=== PATIENT | female | born 1970 | race Caucasian/White ===

== ENCOUNTER 2024-12-23 22:25 | Emergency (ER) | payer MEDICAID, SELFPAY ==
[2024-12-23 22:32] VITALS: BP 134/70; BP 140/78; PULSE 60; PULSE 64; RESP 16; TEMP 36.8; O2SAT 98; O2SAT 99; BMI 26.0
--- NOTE | 2024-12-23 22:44 | ECG_ITS ---
Test Reason : ABD PAIN Blood Pressure : */* mmHG Vent. Rate : 63 BPM Atrial Rate : 63 BPM P-R Int : 170 ms QRS Dur : 82 ms QT Int : 434 ms P-R-T Axes : 60 49 45 degrees QTcB Int : 444 ms Normal sinus rhythm Normal ECG When compared with ECG of 29-Dec-2017 23:53, No significant change was found Referred By: Generic ED Physician Electronically Signed By: Navdeep Gandhi
[2024-12-23 23:06] LABS: MANUAL DIFF FLAG NO
[2024-12-23 23:09] LABS: Basophils Percent Auto 0.4 % (0-2); Eosinophils Absolute Auto 0.1 X10*3/uL (0.0-0.4); Eosinophils Percent Auto 0.9 % (0-4); Hematocrit 37.1 % (37.0-47.0); Hemoglobin 12.3 g/dl (12.0-16.0); Imm Gran Abs Auto 0.01 X10*3/uL (0.00-0.03); Imm Gran Pct Auto 0.1 % (0.0-0.4); Lymphocytes Absolute Auto 2.7 X10*3/uL (1.2-4.9); Lymphocytes Percent Auto 38.2 % (20-40); Mean Corpuscular HGB Conc 33.2 g/dl (31.0-35.0); Mean Corpuscular Hemoglobin 30.8 pg (27.0-33.0); Mean Platelet Volume 10.7 fL (9.4-12.3); Monocytes Absolute Auto 0.4 X10*3/uL (0.1-1.2); Neutrophils Absolute Auto 3.8 x10*3/uL (2.0-8.3); Neutrophils Percent Auto 54.4 % (45-73); Platelet Count 256 X10*3/uL (160-400); Red Blood Count 3.99 X10*6/uL (4.20-5.50); Red Cell Distribution Width 14.2 % (11.0-16.0)
[2024-12-23 23:27] LABS: Alanine Aminotransferase 72 U/L (0-31); Albumin Level 4.1 g/dL (3.5-5.0); Alkaline Phosphatase 63 U/L (39-117); Anion Gap 12 (12-20); Aspartate Amino Transferase 73 U/L (5-31); Bilirubin Direct 0.2 mg/dL (0.0-0.5); Bilirubin Total 0.5 mg/dL (0.0-1.0); Blood Urea Nitrogen 9 mg/dL (9-16); Calcium 9.2 mg/dL (8.4-10.2); Carbon Dioxide 27 mmol/L (22-29); Chloride 105 mmol/L (96-108); Creatinine Clr Calc Pharmacy 67.9; Estimated Glomerular Filt Rate > 60; Glucose Random 75 mg/dL (60-115); Lipase 9 U/L (8-78); Potassium 4.3 mmol/L (3.3-5.1); Sodium 140 mmol/L (135-145); Total Protein 7.7 g/dL (6.5-8.0)
[2024-12-23 23:36] LABS: Troponin-I High Sensitivity < 2.7 ng/L (<3.5-17.0)
--- NOTE | 2024-12-24 00:07 | ED.GENADULT ---
HPI - General Adult General Chief complaint: Abdominal Pain Stated complaint: headache, abd pain hx cancer breast cancer Time Seen by Provider: 12/23/24 23:36 Source: patient Mode of arrival: ambulatory Limitations: no limitations History of Present Illness ED Provider: HPI narrative: Patient's history of anxiety depression comes here for chronic headache and nausea says that she has breast cancer and maybe brain cancer but never been diagnose never been seen by PCP but patient feels that she has a cancer patient's takes Klonopin and has not taken the medicine today Related Data Allergies Allergy/AdvReac Type Severity Reaction Status Date / Time No Known Allergies Allergy Verified 12/23/24 22:35 [No Known Allergies*] Review of Systems Review of Systems: Yes all other systems are reviewed and are negative [facility] Social History Social History Smoked in Last 30 Days: Yes Use of substances other than those prescribed or required for medical reasons: Yes Substance Use Type: Crack/Cocaine Substance Use Frequency: Occasionally Last Used Substance: Weeks (ago) Advance Directives: No Advance Directives Information Provided: No Do you have a plan to hurt others: No Plan Physical Exam ED Vital Signs: Vital Signs - 24 hr 12/23/24 22:32 12/24/24 01:02 Temperature 98.3 F 98.3 F Pulse Rate 60 60 Respiratory Rate 16 16 Blood Pressure 134/70 134/70 Pulse Oximetry 99 99 Oxygen Delivery Method Room Air Room Air BMI result Body Mass Index 26.0 Appearance: Alert. Oriented X3. No acute distress. Eyes: PERRLA, No Nystagmus ENT: Pharynx normal. Oral Mucosa moist Neck: Normal inspection. Neck supple. CVS: Normal heart rate and rhythm. Pulses normal. Respiratory: No respiratory distress. Equal air entry bilateral, no wheezing/rales/rhonchi Abdomen: Soft and nontender. Bowel sounds are present, no mass palpable, no CVA tenderness Skin: Skin warm and dry. Normal skin color. Normal skin turgor. Extremities: No lower extremity edema. No calf tenderness Neuro: Oriented X 3. No motor deficit. No sensory deficit.No cerebellar signs , cranial nerves II-XII intact Medical Decision Making Medical Decision Making MDM Narrative: Patient's anxiety with multiple complaints asking for CT scan says that she been to different hospital for same and nobody does any testing on her patient advised to follow with PCP Lab Data MDM Lab Attestation statement: I reviewed the patient's lab results. 12/23/24 23:02 12/23/24 23:02 Labs: Lab Results 12/23/24 Range/Units 23:02 WBC 7.0 (4.8-10.8) X10*3/uL RBC 3.99 L (4.20-5.50) X10*6/uL Hgb 12.3 (12.0-16.0) g/dl Hct 37.1 (37.0-47.0) % MCV 93.0 (80.0-98.0) fL MCH 30.8 (27.0-33.0) pg MCHC 33.2 (31.0-35.0) g/dl RDW 14.2 (11.0-16.0) % Plt Count 256 (160-400) X10*3/uL MPV 10.7 (9.4-12.3) fL Immature Gran % (Auto) 0.1 (0.0-0.4) % Neut % (Auto) 54.4 (45-73) % Lymph % (Auto) 38.2 (20-40) % Kay % (Auto) 6.0 (2-11) % Eos % (Auto) 0.9 (0-4) % Baso % (Auto) 0.4 (0-2) % Lymph # (Auto) 2.7 (1.2-4.9) X10*3/uL Kay # (Auto) 0.4 (0.1-1.2) X10*3/uL Eos # (Auto) 0.1 (0.0-0.4) X10*3/uL Baso # (Auto) 0.0 (0.0-0.2) X10*3/uL Abs Immat Gran (auto) 0.01 (0.00-0.03) X10*3/uL Absolute Neuts (auto) 3.8 (2.0-8.3) x10*3/uL Absolute Nucleated RBC 0.000 (0.0-0.012) X10*3/uL Nucleated RBC % (auto) 0.0 (0.0-0.2) /100WBC Sodium 140 (135-145) mmol/L Potassium 4.3 (3.3-5.1) mmol/L Chloride 105 (96-108) mmol/L Carbon Dioxide 27 (22-29) mmol/L Anion Gap 12 (12-20) BUN 9 (9-16) mg/dL Creatinine 0.82 (0.5-1.4) mg/dL Estim Creat Clear Calc 67.9 Estimated GFR > 60 Random Glucose 75 (60-115) mg/dL Calcium 9.2 (8.4-10.2) mg/dL Total Bilirubin 0.5 (0.0-1.0) mg/dL Direct Bilirubin 0.2 (0.0-0.5) mg/dL AST 73 H (5-31) U/L ALT 72 H (0-31) U/L Alkaline Phosphatase 63 (39-117) U/L Troponin I High Sens < 2.7 (<3.5-17.0) ng/L Total Protein 7.7 (6.5-8.0) g/dL Albumin 4.1 (3.5-5.0) g/dL Lipase 9 (8-78) U/L Discharge Plan Discharge Clinical Impression: Anxiety Patient Disposition: Home, Self-Care Instructions: Anxiety (ED) Additional Instructions: Continue take your medication follow up with your therapist and PCP Interventions: ED Discharge Assessment Last Done: 12/24/24 01:02 Discharge Date/Time: 12/24/24 01:40 Print Language: Latvian
[2024-12-24 01:02] VITALS: BP 134/70; PULSE 60; RESP 16; TEMP 36.8; O2SAT 99
--- NOTE | 2024-12-24 01:40 | PC.NURSE ---
Pt became belligerent upon discussing discharge and that facility does not provide rides home. Patient stated I live in [place], how the (expletive) am I supposed to get home? . Encouraged patient to call for a ride and she stated that she has no one. Pt's emergency contact goes to a discontinued number. Pt yelling that she is going to janny this hospital. Charge nurse notified. Pt came out of room to nurses's station and asking if we could obtain records from [facility] right now. Explained to patient that she would need to sign a release and it would need to be faxed to [facility] Medical records department and then the employees would send over records. Pt expressed that she was not happy and said she is just trying to save your jobs . Pt noted to be laughing to herself and continued to repeat that she was going to be suing the facility. Dr. Nino over to speak with patient and security over to escort patient out of the department. Pt refused to have vital signs taken or to sign discharge paperwork. Pt initially refused discharge packet and then demanded it prior to being escorted out by security.
== END 2024-12-24 01:40 | disposition home or self-care (01) ==
PROVIDERS: Emergency Provider Internal Medicine
DX: F41.9 Anxiety disorder, unspecified (principal); R10.9 Unspecified abdominal pain
CPT/HCPCS: 36415; 80048; 80076; 83690; 84484; 85025; 93005; 99283; 99284

== ENCOUNTER → 2024-12-23 22:44 | Outpatient (BNV) | payer MEDICAID, SELFPAY | PROVIDERS: Emergency Provider Internal Medicine; Visit Provider Internal Medicine Cardiovascular Disease | DX: R10.9 Unspecified abdominal pain (principal) | CPT/HCPCS: 93010 ==

== ENCOUNTER 2024-12-24 02:12 | Emergency (ER) | payer OTHER, SELFPAY ==
--- NOTE | ~2024-12-24 | CT_ITS ---
CLINICAL HISTORY: headache CT head without contrast Comparison: None Findings: No intra-axial mass, midline shift, hydrocephalus, or acute hemorrhage. No significant atrophy-like change or white matter disease. The visualized paranasal sinuses and mastoid air cells are normal. The orbits are unremarkable. There is no acute fracture. IMPRESSION: 1. No acute intracranial findings. This document has been electronically signed by: Tristan Godoy MD on 12/24/2024 06:31:50
[2024-12-24 02:24] VITALS: BP 133/73; PULSE 55; RESP 116; TEMP 36.7; O2SAT 99; BMI 25.4
--- NOTE | 2024-12-24 04:44 | ED_ITS ---
HPI - General Adult General Chief complaint: General Medical Stated complaint: headache Time Seen by Provider: 12/24/24 04:44 History of Present Illness ED Provider: Dez GLORIA narrative: The patient is a 54-year-old female who has been seen in the emergency room not long before checking in again. She has been discharged at approximately 01:40 this morning. She checked in again at around 02:24, approximately 40 minutes after discharge. She is dissatisfied with her experience at the 1st emergency room visit. She says that she has been having headaches for several weeks and that she has also been having abdominal pains. She lives in [place]. She says that she had been visiting a friend in [place] when she started to feel a worsening headache and worsening left-sided abdominal pain. It was at that point that she called an ambulance and was brought here earlier. She says that she had earlier gotten a ride from a friend who drove her from [place] to her friend here in [place]. At the previous emergency visit she had had phlebotomy done but had not received any treatment. A review of the state website shows that the patient has been prescribed gabapentin regularly by her PCP, Dr. Nomi Solorio of [place], [place]. She has been receiving monthly prescriptions of gabapentin, 300 mg tablets, 120 mg per month. This was last filled on December 07, 18 days ago. Related Data Allergies Allergy/AdvReac Type Severity Reaction Status Date / Time No Known Allergies Allergy Verified 12/24/24 02:26 [No Known Allergies*] Review of Systems 2 Review of Systems: Yes all other systems are reviewed and are negative [facility] Social History Social History Substance Use Type: Crack/Cocaine Advance Directives: No Advance Directives Information Provided: No Physical Exam ED Vital Signs: Vital Signs - 24 hr 12/24/24 02:24 12/24/24 07:27 12/24/24 07:57 Temperature 98.0 F 98.1 F 98.1 F Pulse Rate 55 58 58 Respiratory Rate 116 H 16 16 Blood Pressure 133/73 136/70 136/70 Pulse Oximetry 99 99 99 Oxygen Delivery Method Room Air Room Air Room Air BMI result Body Mass Index 25.4 Const Other: The patient is a 54-year-old woman who looks older than her age, quite unkempt. She did not appear in acute distress or obviously acutely ill. HENMT Other: Face is symmetrical. Poor dentition. Mucous membranes moist. Eyes General: appearance normal, both eyes and all related structures Conjunctivae: conjunctivae normal Pupils: Equal, round and reactive pupils present EOM: EOMs intact bilaterally Neck Neck: Yes full ROM, Yes no lymphadenopathy and Yes no JVD Resp Effort & Inspection: normal respiratory effort Auscultation: clear to auscultation bilaterally Cardio Rate: regular rate Rhythm: regular rhythm Heart sounds: S1 normal heart sound present and S2 normal heart sound present GI Other: The abdomen was soft and seems nontender. Skin Other: Skin was pale and dry Neuro Other: The patient was awake and alert. Cranial nerves 2 through 12 were intact. She moves her extremities symmetrically and appropriately. She had a steady gait. She seems neurologically intact. Cranial nerves: Yes Equal, round and reactive pupils present Extrem Other: No peripheral edema Medications Administered Generic Name Dose Route Start Last Admin Trade Name Freq PRN Reason Stop Dose Admin Nicotine Polacrilex 2 mg 12/24/24 04:58 12/24/24 06:21 Nicotine Polacrilex 2 Mg Gum BUCCAL 2 mg Q2H PRN Administration Nicotine Cravings Discontinued Medications Generic Name Dose Route Start Last Admin Trade Name Freq PRN Reason Stop Dose Admin Methadone HCl 30 mg 12/24/24 07:22 12/24/24 08:06 Methadone Hcl 20 Mg/2 Ml Oral.Conc PO 12/24/24 07:23 30 mg ONCE ONE Administration Medical Decision Making Medical Decision Making [facility] Narrative: The patient is a 54-year-old female who returns to the emergency room less than an hour after being discharged. She is not from this area. She is from [place]. She is complaining of a headache and abdominal pain. She does not seem acutely toxic. She does not have any neurological deficits. She has a benign abdomen. The patient asked about testing that had recently been done at [facility]. I was able to access [facility] records. The patient was in fact at a [facility] on December 09 but there were no imaging studies done. 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 She has been discharged after receiving a dose of benzodiazepines and resting. Today we have done a head CT that is negative. She has a an unremarkable CBC and chemistries. Her urine tox screen is positive for methadone (she says she takes methadone regularly through [facility]). She is also is testing positive for fentanyl and cocaine. ETOH is negative. Clinically my suspicion for an acute medical process was very low. She has a negative head CT. Her abdomen is benign. While waiting for the results of her testing she asked for food and was given a sandwich that she was eating avidly. Overall my medical evaluation is negative. I suspect that the patient's presentation is probably more related to substance use problems and possibly mental health problems. She was offered the opportunity to speak to the care team. At 1st she declined this but then she changed her mind and requested to speak to the care team to discuss feelings of depression. She also asked for her morning dose of methadone. She says she usually gets methadone through a [facility] clinic in [place]. Since we were not able to verify this dose I have ordered 30 mg a methadone. The patient will be signed out to the oncoming emergency physician pending a evaluation by the care team. Addendum: 8:44AM Although the patient was at no point suicidal she had taken up my offer of a care team consult. However she ultimately walked out of the emergency department while we were waiting for the care team. At that point I canceled the care team consult. I did not feel they were grounds on which to hold her against her will and I did not feel there was an indication to stop her from walking out. My overall impression was that she probably had some secondary gain in staying in the emergency room. Lab Data 12/24/24 06:26 12/24/24 06:26 Labs: Lab Results 12/24/24 12/24/24 Range/Units 06:26 06:40 WBC 5.8 (4.8-10.8) X10*3/uL RBC 4.38 (4.20-5.50) X10*6/uL Hgb 13.4 (12.0-16.0) g/dl Hct 41.1 (37.0-47.0) % MCV 93.8 (80.0-98.0) fL MCH 30.6 (27.0-33.0) pg MCHC 32.6 (31.0-35.0) g/dl RDW 14.3 (11.0-16.0) % Plt Count 249 (160-400) X10*3/uL MPV 11.1 (9.4-12.3) fL Immature Gran % (Auto) 0.2 (0.0-0.4) % Neut % (Auto) 47.2 (45-73) % Lymph % (Auto) 43.0 H (20-40) % Cobb % (Auto) 6.8 (2-11) % Eos % (Auto) 2.3 (0-4) % Baso % (Auto) 0.5 (0-2) % Lymph # (Auto) 2.5 (1.2-4.9) X10*3/uL Cobb # (Auto) 0.4 (0.1-1.2) X10*3/uL Eos # (Auto) 0.1 (0.0-0.4) X10*3/uL Baso # (Auto) 0.0 (0.0-0.2) X10*3/uL Abs Immat Gran (auto) 0.01 (0.00-0.03) X10*3/uL Absolute Neuts (auto) 2.7 (2.0-8.3) x10*3/uL Absolute Nucleated RBC 0.000 (0.0-0.012) X10*3/uL Nucleated RBC % (auto) 0.0 (0.0-0.2) /100WBC Sodium 143 (135-145) mmol/L Potassium 3.9 (3.3-5.1) mmol/L Chloride 106 (96-108) mmol/L Carbon Dioxide 30 H (22-29) mmol/L Anion Gap 11 L (12-20) BUN 10 (9-16) mg/dL Creatinine 0.78 (0.5-1.4) mg/dL Estim Creat Clear Calc 70.6 Estimated GFR > 60 Random Glucose 100 (60-115) mg/dL Calcium 9.3 (8.4-10.2) mg/dL Total Bilirubin 0.4 (0.0-1.0) mg/dL Direct Bilirubin 0.2 (0.0-0.5) mg/dL AST 63 H (5-31) U/L ALT 71 H (0-31) U/L Alkaline Phosphatase 66 (39-117) U/L C-Reactive Protein < 0.04 (< or = 0.50) mg/dL Total Protein 7.5 (6.5-8.0) g/dL Albumin 4.1 (3.5-5.0) g/dL Beta HCG, Quant < 2 mIU/mL Urine Color Yellow Urine Appearance Clear Urine pH 7.0 (5.0-9.0) Ur Specific [place] <= 1.005 (1.005-1.025) Urine Protein Negative (Neg-Trace) mg/dL Urine Glucose (UA) Negative (Negative) mg/dL Urine Ketones Negative (Negative) mg/dL Urine Blood Negative (Negative) Urine Nitrite Negative (Negative) Ur Leukocyte Esterase Trace H (Negative) Urine RBC 0-2 (0-2) /HPF Urine WBC 0-5 (0-5) /HPF Ur Squamous Epith Cells 0-2 (0-2) /HPF Urine Bacteria None Seen (None Seen) Hyaline Casts 0-2 (0-2) /LPF Urine Opiates Screen Not Detected (Not Detect) Ur Buprenorphine Scrn Not Detected (Not Detect) ng/mL Ur Oxycodone Screen Not Detected (Not Detect) ng/mL Urine Methadone Screen Positive H (Not Detect) ng/mL Urine Fentanyl Screen POSITIVE H (Not Detect) Ur Barbiturates Screen Not Detected (Not Detect) Ur Phencyclidine Scrn Not Detected (Not Detect) Ur Amphetamines Screen Not Detected (Not Detect) U Benzodiazepines Scrn Not Detected (Not Detect) Urine Cocaine Screen POSITIVE H (Not Detect) U Marijuana (THC) Screen Not Detected (Not Detect) Ethyl Alcohol < 10 mg/dL Discharge Plan Discharge Clinical Impression: Headache, Substance use disorder Patient Disposition: Home, Self-Care Additional Instructions: Your testing in the emergency room today is very reassuring. The CAT scan of your head is normal. Your blood testing is reassuringly normal. Please do your best to follow up with your primary care doctor's office or get a new primary care doctor. Return to the emergency room if worse. Referrals: Nomi Solorio MD [Primary Care Provider] - Interventions: ED Discharge Assessment Last Done: 12/24/24 07:57 Print Language: Mohawk
--- NOTE | 2024-12-24 04:55 | PC.NURSE ---
Addendum entered by Adeline Feliciano 12/24/24 04:56: Pt given sandwich and PO liquids per pt request Original Note: provider at the bedside
[2024-12-24] MEDS: Nicotine Polacrilex 2 MG GUM BUCCAL (06:21)
[2024-12-24 06:31] LABS: MANUAL DIFF FLAG NO
[2024-12-24 06:58] LABS: Amphetamine Screen Urine Not Detected (Not Detect); Barbiturates, Urine Not Detected (Not Detect); Benzodiazepines Screen Urine Not Detected (Not Detect); Buprenorphine Scr Not Detected (Not Detect); Cannabinoid Screen Urine Not Detected (Not Detect); Cocaine Screen Urine POSITIVE (Not Detect); Fentanyl, urine POSITIVE (Not Detect); Methadone Screen, Urine Positive (Not Detect); Opiate Screen Urine Not Detected (Not Detect); Oxycodone Screen Urine Not Detected (Not Detect); Phencyclidine Screen Urine Not Detected (Not Detect)
[2024-12-24 06:59] LABS: Basophils Percent Auto 0.5 % (0-2); Eosinophils Absolute Auto 0.1 X10*3/uL (0.0-0.4); Eosinophils Percent Auto 2.3 % (0-4); Hematocrit 41.1 % (37.0-47.0); Hemoglobin 13.4 g/dl (12.0-16.0); Imm Gran Abs Auto 0.01 X10*3/uL (0.00-0.03); Imm Gran Pct Auto 0.2 % (0.0-0.4); Lymphocytes Absolute Auto 2.5 X10*3/uL (1.2-4.9); Mean Corpuscular HGB Conc 32.6 g/dl (31.0-35.0); Mean Corpuscular Hemoglobin 30.6 pg (27.0-33.0); Mean Corpuscular Volume 93.8 fL (80.0-98.0); Mean Platelet Volume 11.1 fL (9.4-12.3); Monocytes Absolute Auto 0.4 X10*3/uL (0.1-1.2); Monocytes Percent Auto 6.8 % (2-11); Neutrophils Absolute Auto 2.7 x10*3/uL (2.0-8.3); Neutrophils Percent Auto 47.2 % (45-73); Platelet Count 249 X10*3/uL (160-400); Red Blood Count 4.38 X10*6/uL (4.20-5.50); Red Cell Distribution Width 14.3 % (11.0-16.0); White Blood Count 5.8 X10*3/uL (4.8-10.8)
[2024-12-24 07:01] LABS: Alanine Aminotransferase 71 U/L (0-31); Albumin Level 4.1 g/dL (3.5-5.0); Alkaline Phosphatase 66 U/L (39-117); Anion Gap 11 (12-20); Aspartate Amino Transferase 63 U/L (5-31); Bilirubin Direct 0.2 mg/dL (0.0-0.5); Bilirubin Total 0.4 mg/dL (0.0-1.0); Blood Urea Nitrogen 10 mg/dL (9-16); C Reactive Protein < 0.04 mg/dL (< or = 0.50); Calcium 9.3 mg/dL (8.4-10.2); Carbon Dioxide 30 mmol/L (22-29); Chloride 106 mmol/L (96-108); Creatinine Clr Calc Pharmacy 70.6; Estimated Glomerular Filt Rate > 60; Ethanol < 10 mg/dL; Glucose Random 100 mg/dL (60-115); HCG Quantitative < 2 mIU/mL; Potassium 3.9 mmol/L (3.3-5.1); Sodium 143 mmol/L (135-145); Total Protein 7.5 g/dL (6.5-8.0)
[2024-12-24 07:07] LABS: Appearance Urine Clear; Color Urine Yellow; Glucose Urine UA Negative (Negative); Leukocyte Esterase Urine Trace (Negative); Nitrite Urine Negative (Negative); Specific Gravity - Urine <= 1.005 (1.005-1.025); UMIC TRIGGER UACC YES; Urine Blood Negative (Negative); Urine Ketones Negative (Negative); Urine Protein Negative (Neg-Trace)
[2024-12-24 07:12] LABS: Bacteria Urine None Seen (None Seen); Hyaline Casts Urine 0-2 /LPF (0-2); RBC Urine 0-2 /HPF (0-2); Squamous Epithelial Cell Urine 0-2 /HPF (0-2); WBC Urine 0-5 /HPF (0-5)
[2024-12-24 07:27] VITALS: BP 136/70; PULSE 58; RESP 16; TEMP 36.7; O2SAT 99
[2024-12-24 07:57] VITALS: BP 136/70; PULSE 58; RESP 16; TEMP 36.7; O2SAT 99
[2024-12-24] MEDS: methADONE HCl 20 MG/2 ML ORAL.CONC 30 MG PO (08:06)
--- NOTE | 2024-12-24 08:10 | PC.NURSE ---
pt requesting to speak with the care team upon discharge, dr carreon notified verbally.
--- NOTE | 2024-12-24 09:04 | PC.NURSE ---
PT STELLA, DR ESPINOZA AWARE
== END 2024-12-24 09:04 | disposition home or self-care (01) ==
PROVIDERS: Emergency Provider Emergency Medicine; PCP Family Medicine
DX: R51.9 Headache, unspecified (principal); F19.90 Other psychoactive substance use, unspecified, uncomplicated; R10.9 Unspecified abdominal pain; F32.A Depression, unspecified; F11.20 Opioid dependence, uncomplicated
CPT/HCPCS: 36415; 70450; 80048; 80076; 80307; 81001; 81003; 84702; 85025; 86140; 99283; 99284

== ENCOUNTER → 2024-12-24 04:58 | Outpatient (BNV) | payer OTHER, SELFPAY | PROVIDERS: Emergency Provider Emergency Medicine; PCP Family Medicine; Visit Provider Specialist | DX: R51.9 Headache, unspecified (principal) | CPT/HCPCS: 70450 ==

== ENCOUNTER 2024-12-24 14:35 | Emergency (ER) | payer OTHER, SELFPAY ==
[2024-12-24 14:41] VITALS: BP 130/83; PULSE 75; O2SAT 98
[2024-12-24 14:49] VITALS: BP 131/73; PULSE 75; RESP 18; TEMP 36.4; O2SAT 98; BMI 22.7
--- NOTE | 2024-12-24 14:56 | ED.GENADULT ---
HPI - General Adult General Chief complaint: General Medical Stated complaint: FEELS UNWELL/NOTHING SPECIFIC PER EMS Time Seen by Provider: 12/24/24 16:55 Source: patient and EMS Mode of arrival: EMS Limitations: no limitations History of Present Illness ED Provider: Angelika Lemus PA-C HPI narrative: Patient is a 54 year old assigned female at with a history of breast cancer, anxiety, and chronic headaches presenting to the emergency department today requesting ride assistance. Patient states that she has been here multiple times in the last 24 hours and has no medical complaints but wants help getting a ride back to the [facility] in [place]. Patient denies any dizziness, lightheadedness, abdominal pain, nausea, vomiting, fever, chills, blurry vision, double vision, loss of vision, chest pain, difficulty breathing, shortness of breath, back pain, night sweats, pain with urination, increased urinary frequency, increased urinary urgency, blood in her urine or stool, syncope or a near syncopal episode, recent trauma or falls, bowel incontinence, bladder incontinence, or any other complaints at this time. Relieving factors: none Exacerbating factors: none Associated symptoms: denies other symptoms Treatments prior to arrival: none Related Data Allergies Allergy/AdvReac Type Severity Reaction Status Date / Time No Known Allergies Allergy Verified 12/24/24 14:50 [No Known Allergies*] Review of Systems Constitutional: Constitutional: Reports no additional constitutional complaints, Denies chills, Denies fever(s) and Denies night sweats Eyes: Eyes: Reports no additional eye complaints, Denies blurry vision, Denies change in vision, Denies diplopia, Denies eye discharge, Denies loss of vision and Denies eye pain ENT: Denies dizziness Cardiovascular: Cardiovascular: Reports no additional cardiovascular complaints, Denies chest pain, Denies lightheadedness, Denies Loss of Consciousness and Denies dyspnea Respiratory: Respiratory: Reports no additional respiratory complaints and Denies dyspnea Gastrointestinal: Gastrointestinal: Reports no additional gastrointestinal complaints, Denies abdominal pain, Denies melena, Denies hematochezia, Denies change in bowel habits and Denies change in stool character Genitourinary: Genitourinary: Denies hematuria, Denies urinary frequency, Denies dysuria, Denies urinary incontinence, Denies urinary hesitancy and Denies urinary urgency Musculoskeletal: Musculoskeletal: Reports no additional musculoskeletal complaints, Denies numbness and Denies tingling Neurologic: Denies dizziness, Denies loss of vision, Denies numbness and Denies tingling Psychiatric: Psychiatric: Reports no additional psychiatric complaints Endocrine: Endocrine: Reports no additional endocrine complaints Hematologic/Lymphatic: Hematologic/Lymphatic: Reports no additional hematologic/lymphatic complaints Allergic/Immunologic: Allergic/Immunologic: Reports no additional allergic/immunologic complaints PMFSH Past Medical History Attestation statement: The following information was validated with the patient. Source: old records reviewed and nursing notes reviewed Social History Social History Substance Use Type: Crack/Cocaine Advance Directives: No Advance Directives Information Provided: No Physical Exam ED Vital Signs: Vital Signs - 24 hr 12/24/24 14:49 12/24/24 17:19 Temperature 97.6 F 97.6 F Pulse Rate 75 75 Respiratory Rate 18 18 Blood Pressure 131/73 131/73 Pulse Oximetry 98 98 Oxygen Delivery Method Room Air Room Air BMI result Body Mass Index 22.7 Const General: cooperative, no acute distress, alert and awake Nutritional Appearance: well nourished Orientation/consciousness: patient oriented x3 HENMT Head: Yes normal to inspection and Yes atraumatic Ears: hearing grossly normal bilaterally and external ears normal General nose exam: Normal external nose present, no nasal discharge noted and no epistaxis Face and sinus: Yes normal facial exam, No abrasion and No laceration Mouth: Normal oral and palatal mucosa present, no drooling and no muffled voice Eyes General: appearance normal, both eyes and all related structures Periorbital: periorbital findings normal Eyelids: Yes eyelids normal Conjunctivae: conjunctivae normal Pupils: Equal, round and reactive pupils present EOM: EOMs intact bilaterally Neck Neck: Yes normal visual inspection, Yes full ROM and Yes no lymphadenopathy Resp Effort & Inspection: normal respiratory effort and able to speak in complete sentences Neuro General: patient oriented x3, moves all extremities and CN's II-XI intact bilaterally Cranial nerves: Yes Equal, round and reactive pupils present Cognition (Neuro): normal cognition Extrem General: Yes normal to inspection, Yes full ROM and Yes capillary refill normal Psych Appearance: grossly normal Mental Status: mental status grossly normal Affect: normal affect Attitude: cooperative Thought process: Normal thought process present Thought content: Normal thought content present Insight: Good insight present (Psych) Course Course Course Narrative: RME performed by Angelika Lemus PA-C. Patient is a 54 year old assigned female at presenting to the emergency department with no complaints and requesting a ride home to [place], [place]. Patient states that she has been here multiple times and only wants a ride home to [facility]. Detailed physical exam and review of systems are deferred to the griddle attendant. Patient placed back in the waiting room pending room availability. Medical Decision Making Medical Decision Making MDM Narrative: Patient is a 54 year old assigned female at with a history of breast cancer, anxiety, and chronic headaches presenting to the emergency department today requesting ride assistance. Patient's physical exam was unremarkable. I explained my physical exam findings to the patient. I answered all questions asked by the patient. I spent an extensive amount of time attempting to arrange a ride home for the patient and ultimately, it was decided by department leadership that the [facility] would not be paying for an Uber / Lyft / ride share / or taxi of any kind to facilitate the patient returning to [place]. I explained this to the patient who expressed disappointment and informed me should would continue returning to this emergency department until we help facilitate her transportation home to [place]. I stressed the importance of the patient taking her medication as directed (either prescribed or as the over the counter packaging recommends). I stressed the importance of the patient following up with her primary care provider. I stressed the importance of the patient returning to the emergency department immediately if she were to develop any dizziness, shortness of breath, difficulty breathing, chest pain, blurry vision, loss of vision, nausea, vomiting, abdominal pain, fever, chills, back pain, or any other complaints. Patient verbalized agreement and understanding with this treatment plan and discharge. Differential Diagnosis Differential Diagnoses: The differential diagnosis associated with the presentation includes Normal physical examination Requesting ride assistance Admission/Observation Consideration of admission/observation: Escalation of care including admission/observation considered Patient would have been admitted to the hospital had her clinical presentation warranted hospital admission. Independent Historian Clinical information obtained from an independent historian. History obtained from or confirmed by: EMS (EMS provided additional history and confirmed the history provided by the patient. ) Discharge Plan Discharge Clinical Impression: Normal physical examination Patient Disposition: Home, Self-Care Instructions: Normal Exam (ED) Additional Instructions: You have requested assistance getting back to [facility]. Unfortunately, we have no way of helping facilitate that from the Emergency Department. Follow up with your primary care provider for any medical concerns you may have. Return to the emergency department immediately if you develop any numbness, tingling, dizziness, shortness of breath, difficulty breathing, chest pain, blurry vision, loss of vision, nausea, vomiting, abdominal pain, fever, chills, back pain, or any other complaints. Referrals: [facility] [place]] (Call to establish and follow up with a primary care provider. If you already have a primary care provider, please follow up with them.) [facility] [Provider Group] (Call to establish and follow up with a primary care provider. If you already have a primary care provider, please follow up with them.) [facility] Etta [Provider Group] (Call to establish and follow up with a primary care provider. If you already have a primary care provider, please follow up with them.) [facility] SAMANTHA [Provider Group] (Call to establish and follow up with a primary care provider. If you already have a primary care provider, please follow up with them.) [facility] To [Provider Group] (Call to establish and follow up with a primary care provider. If you already have a primary care provider, please follow up with them.) Interventions: ED Discharge Assessment Last Done: 12/24/24 17:19 Discharge Date/Time: 12/24/24 17:20 Print Language: Kyrgyz
[2024-12-24 17:19] VITALS: BP 131/73; PULSE 75; RESP 18; TEMP 36.4; O2SAT 98
== END 2024-12-24 17:20 | disposition home or self-care (01) ==
PROVIDERS: Emergency Provider Emergency Medicine Emergency Medical Services
DX: Z59.82 Transportation insecurity (principal); R51.9 Headache, unspecified; Z85.3 Personal history of malignant neoplasm of breast
CPT/HCPCS: 99282